=== PATIENT | female | born 1980 | race Caucasian/White ===

== ENCOUNTER 2023-06-30 05:39 | Emergency (ER) | payer SELFPAY ==
[2023-06-30 05:53] VITALS: BP 118/78; PULSE 74; RESP 16; TEMP 97.8; BMI 25.7
[2023-06-30] MEDS ORDERED: ACETAMINOPHEN 325 MG TABLET (FP) PO ONE (05:55)
[2023-06-30] MEDS ORDERED: ACETAMINOPHEN 325 MG TABLET (FP) ONE (06:02)
== END 2023-06-30 08:37 | disposition home or self-care (01) ==
LOC: JER 05:39
DX: M25.572 Pain in left ankle and joints of left foot (principal); S92.355A Nondisplaced fracture of fifth metatarsal bone, left foot, initial encounter for closed fracture; X50.0XXA Overexertion from strenuous movement or load, initial encounter; Y93.01 Activity, walking, marching and hiking
CPT/HCPCS: 73610-TC-LT-FY; 73630-TC-LT; 99283-25